=== PATIENT | female | born 1975 | race Caucasian/White ===

== ENCOUNTER 2020-10-03 08:59 | Inpatient (IN) | payer OTHER ==
[~2020-10-03] VITALS: Ht 160 cm; Wt 68.5 kg
--- NOTE | ~2020-10-03 | HC ---
[facility] [place] [address] CONSULTATION Name: JOHN BROTHERS Room #: [facility] M.R.#: [id number] Admission: 10/03/20 Attend Phys: Trevon Cross MD Discharge: Date of : 71 Report #: [id number] THIS REPORT FOR: cc: FAM - Family physician unknown FAM - Family physician unknown Gregory Jones MD ~ DOC #: [id number] Gregory Jones MD DATE OF SERVICE: 10/03/2020 HISTORY OF PRESENT ILLNESS: This is a 44-year-old female patient who was seen by me for weakness in the legs. I spent a lot of time on her and her history kept changing. She mostly complained of pain in the lower to mid back and she says it radiates down to the right leg. First she said it is going on for 2 weeks, but then she said the pain started 2 weeks and weakness was today, then she said she had similar symptoms in the past, the last one was 2-year. She was admitted to [facility]. They did MRIs and multiple testing and they could not find anything wrong. The symptom lasted several weeks and then resolved. She says sometimes she feels depressed and anxious, but wont give any more history other than that. She says she has cramps in the legs. REVIEW OF SYSTEMS: Indicates she also complained of diarrhea. More history is difficult because of the language barrier, but her was there to translate and does not look like there is much other history going on in this patient, which is contributory. PAST MEDICAL HISTORY: Positive for similar symptoms multiple times. She has admission to [place] [facility] 2 years ago with negative workup. FAMILY HISTORY: Unremarkable. SOCIAL HISTORY: Significant other was here and I talked to him. PHYSICAL EXAMINATION: NEUROLOGIC: She is alert, responsive, higher functions the best I can tell, looks unremarkable, but limited because of language barrier, so as cranial nerve examination. She moves all 4 extremities. She moves legs very slowly. When I do the position sense, she says she can tell when I am pushing it down, but she cannot tell me when I am pushing it up. Reflexes are present. Plantars are mute. She is able to walk, but slowly. VITAL SIGNS: Blood pressure is 116/73, respirations 17, pulse is 66, temperature is 98.4. IMPRESSION: I do not believe this patient's symptoms can fit into any anatomical location. They are pretty unstructured. History keeps changing. She says she has weakness of the legs and she said it started today, but then [facility] [address] [place] [address] CONSULTATION Name: JOHN BROTHERS Room #: [address] [place] [address] M.R.#: [id number] Admission: 10/03/20 Attend Phys: Trevon Cross MD Discharge: Date of : 71 Report #: [id number] she also changes her story. I got an MRI of the lumbar and thoracic spine stat in this patient. The report is not there yet but I looked at the films and that looks mostly unremarkable. I think we should consider a psychiatric consult in this patient, although we should continue with other workup to look for organic causes. Thank you very much for this referral. MD JESUSITA Hwang/NADIA By: [id number] Gregory Jones MD /nt
[~2020-10-03 08:59] MED LIST: CIPRO500 MG PO; ONDANSETRON HCL4 M2 PO
[2020-10-03 09:05] VITALS: BP 138/89
[2020-10-03 09:24] LABS: HEMATOCRIT 44.1 % (37.0-47.0); HEMOGLOBIN 14.7 gm/dL (12.0-15.0); MCH 28.9 pg (26.0-34.0); MCHC 33.4 g/dL (28.0-37.0); MCV 86.5 fL (80.0-100.0); RBC 5.09 mil/uL (4.20-5.00); RDW 13.4 % (10.5-14.5); WBC 7.2 thou/uL (4.0-11.0)
[2020-10-03 09:35] LABS: CALCIUM 9.3 mg/dL (8.5-10.1); CREATININE 0.8 mg/dL (0.6-1.0)
[2020-10-03 09:41] LABS: MAGNESIUM 2.1 mg/dL (1.8-2.4); TOTAL BILIRUBIN 0.3 mg/dL (0.2-1.0); TOTAL PROTEIN 8.6 g/dL (6.4-8.2)
[2020-10-03 10:58] LABS: URINE BILIRUBIN NEGATIVE (Negative); URINE BLOOD NEGATIVE (Negative); URINE CLARITY CLEAR; URINE COLOR YELLOW; URINE GLUCOSE-RANDOM* NEGATIVE (Negative); URINE KETONES NEGATIVE (Negative); URINE LEUKOCYTES-REFLEX NEGATIVE (Negative); URINE NITRITE-REFLEX NEGATIVE (Negative); URINE PROTEIN (DIPSTICK) NEGATIVE (Negative); URINE SPECIFIC GRAVITY 1.015 (1.005-1.035); URINE UROBILINOGEN 0.2 E.U./dl (0.2-1.0)
--- NOTE | 2020-10-03 12:40 | NUR ---
ATTEMPTED TO ROADTEST PT AT THIS TIME. PT VERY WOBBLY STANDING UPRIGHT. ED PROVIDER TO BEDSIDE TO ASSIST. PT GAIT VERY UNSTEADY IN NATURE. PT STATES TO SPOUSE THAT SHE FEELS LIKE SHE IS GOING TO PASS OUT.
--- NOTE | 2020-10-03 12:48 | NUR ---
REPORT GIVEN TO KALPANA GARCIA AT THIS TIME. PT READY FOR TRANSPORT AT THIS TIME
--- NOTE | 2020-10-03 15:06 | EKG ---
[place] [address] [facility] 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 10/03/20 1506 0923 2 Jim Cottrell MD, FACC /EPI
[2020-10-03 15:30] VITALS: BP 113/76
[2020-10-03 15:42] VITALS: BP 121/77
[2020-10-03 16:30] VITALS: BP 116/73
--- NOTE | 2020-10-03 19:35 | NUR ---
Pt arrived to floor from emergency room at 1630 in stable condition.Admission hx,assessment and careplan completed. Pt speaks cymro fluently but able to communicate in simple botswanan.Dr Jones here,order noted.Report off to noc rn.
[2020-10-03 22:17] VITALS: BP 115/73
[2020-10-04 04:37] VITALS: BP 119/67
--- NOTE | 2020-10-04 05:54 | NUR ---
ASSUMED CARE OF PT AT SHIFT CHANGE. PT IS AOX4 AND LETS NEEDS BE KNOWN. FALL PRECAUTION IN PLACE. PT IS GERMAN SPEAKING AND ENGLISH TUTOR SERVICES USED FOR COMMUNICATION. NO BM NOTED THIS SHIFT. PT DENIED PAIN OR NAUSEA. ASSESSMENT CHARTED. PT COMPLETED MRI. PT SLEPT PART OF THE SHIFT. VSS AND NO S/S OF ACUTE DISTRESS. WILL CONTINUE TO MONITOR.
[2020-10-04 07:47] VITALS: BP 132/84
[2020-10-04 15:43] VITALS: BP 123/81
[2020-10-04 19:48] VITALS: BP 123/74
--- NOTE | 2020-10-04 19:58 | NUR ---
ASSUMED CARE OF PATIENT AT SHIFT CHANGE. ASSESSMENT CCHARTED. MEDICATIONS ADMINISTERED PER EMAR. VSS. PATIENT IS A&OX4 BUT SPEAKS ONLY CONGOLESE. PATIENT ABLE TO COMMUNICATE WITH PHONE AND COLOR CHECKER SVC'S. PATIENT VOICES CONSTANT PAIN IN EXTREMITIES; WORSE STARTING MIDBACK RADIATING DOWN TO LEGS. PATIENT WORKED WITH PT/OT BUT WAS VERY PAINFUL HOWVEVER PATIENT DOES NOT ASK FOR PAIN MEDS. VOICED "HEAVY, POUNDING PAIN" ON CHEST; PROVIDER NOTIFIED AND EKG COMPLETE SHOWING NO NEW CHANGES. FORMED STOOLS X3 THIS ADMISSION; "CDIFF" SAMPLE SENT TO LAB/ OCCULT BLOOD. PATIENT CALLS OUT IF NEEDING HELP; USING A WALKER DUE TO HEAVINESS AT LEGS. NO NEW ISSUES. ENDORSED TO ONCOMING NURSE
--- NOTE | 2020-10-05 05:30 | NUR ---
patient is vietnamese pleasant lady. patient denied pain or discomfort. spouse at bedside and helped with assessment. patient uses a commode. fall precaution in place.patient in bed asleep at time breathing regular and unlaboured.
--- NOTE | 2020-10-05 07:25 | EKG ---
[address] [employer] [place] [address] ELECTROCARDIOGRAM REPORT Name: JOHN BROTHERS Room #: 453-P ADM IN M.R.#: [id number] Admission: 10/03/20 Attend Phys: Trevon Cross MD Discharge: Date of : 71 Report #: [id number] [facility] Test Date: 2020-10-04 Test Time: 18:17:05 Pat Name: JOHN BROTHERS Department: Room: 453 P Gender: F Wallpaper Hanger: FSCHWALBE : 1975 Requested By: Trevon Cross Order Number: [id number] MD: Jim Cottrell Measurements Intervals [place] Rate: 65 P: 46 OR: 190 QRS: 43 QRSD: 84 T: 10 QT: 380 QTc: 396 Interpretive Statements Sinus rhythm Baseline wander in lead(s) V6 Compared to ECG 10/03/2020 09:23:16 No significant changes Electronically Signed On 10-05-2020 7:25:43 CDT by Jim Cottrell [email or web address] <ELECTRONICALLY SIGNED> By: Jim Cottrell MD, [facility] 10/05/20724 1817 16 Jim Cottrell MD, FACC /EPI
[2020-10-05 07:40] VITALS: BP 115/72
[2020-10-05] MEDS ORDERED: BACLOFEN 10MG T10 MG PO (12:00)
[2020-10-05 12:39] VITALS: BP 115/72
--- NOTE | 2020-10-05 12:46 | NUR ---
PT ADMITTED RELATED TO NAUSEA, VOMITING, AND DIARRHEA. CM REVIEWED CHART AND SPOKE WITH CARE TEAM. CM USED WATER SERVER SERVICE AND SPOKE WITH PT AT BEDSIDE THIS DAY. PT APPEARED TO BE A&0 X4. CM ROLE INTRODUCED. SHE INDICATED SHE RESIDES IN A HOUSE WITH HER SPOUSE AND BROTHER IN LAW. PT IS A SOCIAL WORK COORDINATOR. THERE ARE 7 STEPS TO ENTER AND 6 INSIDE. SHE INDICATED SHE IS ABLE TO FILL MEDICATIONS UPON DC ND CONFIRMED THE PREFERRED PHARMACY ON FILE. PT PROVIDED COPIES OF INSURANCE CARD. CM TO PROVIDE TO REGISTRATION. PT HAS TRANSPORT HOME THIS DAY. NO OTHER CM INTERVENTION INDICATED. CASE CLOSED.
== END 2020-10-05 13:44 | disposition home or self-care (01) | DRG 552 ==
LOC: ER 08:59 → EROBS 14:33 → 4W 16:00
PROVIDERS: Student in an Organized Health Care Education/Training Program; ADMIT Hospitalist; ATTEND Hospitalist
DX: M51.26 Other intervertebral disc displacement, lumbar region (principal); M54.42 Lumbago with sciatica, left side; M54.41 Lumbago with sciatica, right side; Z20.822 Contact with and (suspected) exposure to COVID-19; Z79.899 Other long term (current) drug therapy
CPT/HCPCS: 10040